=== PATIENT | male | born 1965 | race African-American/Black ===

== ENCOUNTER → 2018-04-02 | Outpatient (CLI) | payer OTHER ==
[2018-04-02 14:40] LABS: BLOOD UREA NITROGEN 24 mg/dL (7-20)
== END ==
LOC: OD 13:23
PROVIDERS: ATTEND Nurse Practitioner Primary Care
DX: I10 Essential (primary) hypertension (principal); E11.8 Type 2 diabetes mellitus with unspecified complications
CPT/HCPCS: 36415; 82565; 84520